=== PATIENT | male | born 1980 | race Caucasian/White ===

== ENCOUNTER 2019-02-23 10:31 | Emergency (ER) | payer SELFPAY ==
[2019-02-23 10:41] VITALS: BP 128/77
--- NOTE | 2019-02-23 11:17 | UC ---
Abdominal Pain Male HPI - HPI Summary HPI Summary: 38-year-old male comes in with a chief complaint of pain and swelling in the left inguinal area. This started at work on February 03, 2018 when he was lifting something heavy over his head. Had instant pain at the time and noticed swelling in the left inguinal area. He thought he might have a hernia. He was able to reduce it on his own. He's continued to have the pain and swelling ever since that time and he still been able to consistently reduce the swelling on his own. No problems with eating or drinking. No complaint of any change in bowel or bladder. Lifting makes the pain worse. Resting and reducing the area makes the pain better. Denies any scrotal pain or swelling. - History of Current Complaint Chief Complaint: UCAbdominalPain Stated Complaint: ABD PAIN Time Seen by Provider: 02/23/19 10:52 Pain Intensity: 7 - Allergies/Home Medications Allergies/Adverse Reactions: Allergies Allergy/AdvReac Type Severity Reaction Status Date / Time Penicillins Allergy unk Verified 02/23/19 10:33 Home Medications: Home Medications NK [No Home Medications Reported] 02/23/19 [History Confirmed 02/23/19] PMH/Surg Hx/FS Hx/Imm Hx Previously Healthy: Yes - Surgical History Surgical History: Yes Surgery Procedure, Year, and Place: fingers - Family History Known Family History: Positive: Non-Contributory - Social History Alcohol Use: Occasionally Substance Use Type: None Smoking Status (MU): Heavy Every Day Tobacco Smoker Review of Systems All Other Systems Reviewed And Are Negative: Yes Constitutional: Positive: Negative Skin: Positive: Negative Eyes: Positive: Negative ENT: Positive: Negative Respiratory: Positive: Negative Cardiovascular: Positive: Negative Gastrointestinal: Positive: Other - see hpi Genitourinary: Positive: Negative Motor: Positive: Negative Neurovascular: Positive: Negative Musculoskeletal: Positive: Negative Neurological: Positive: Negative Psychological: Positive: Negative Is Patient Immunocompromised?: No Physical Exam Triage Information Reviewed: Yes Appearance: Well-Appearing, No Pain Distress, Well-Nourished Vital Signs: Initial Vital Signs Temp 99.3 F 02/23/19 10:37 Pulse 86 02/23/19 10:37 Resp 16 02/23/19 10:37 BP 128/77 02/23/19 10:37 Pulse Ox 100 02/23/19 10:37 Vital Signs Reviewed: Yes Eye Exam: Normal Eyes: Positive: Conjunctiva Clear Neck: Positive: Supple Respiratory: Positive: Lungs clear, Normal breath sounds, No respiratory distress Cardiovascular: Positive: RRR Bowel Sounds: Positive: Present Male Genital Exam: Positive: Other - Patient has some swelling in the inguinal canal which is reducible. Musculoskeletal: Positive: Strength Intact Neurological: Positive: Alert Psychological: Positive: Age Appropriate Behavior Skin Exam: Normal Abd Pain Male Course/Dx - Course Course Of Treatment: Plan is to have the patient follow-up with surgery. We discussed hernia strangulation if this gets worse he needs to go the emergency room right away. - Differential Dx/Clinical Impression Provider Diagnosis: Left inguinal hernia Discharge ED - Sign-Out/Discharge Documenting (check all that apply): Patient Departure All imaging exams completed and their final reports reviewed: No Studies - Discharge Plan Condition: Stable Disposition: HOME Patient Education Materials: Inguinal Hernia (ED) Forms: *Work Release Referrals: Juan Colmenares MD [Medical Doctor] - Additional Instructions: FOLLOW UP WITH DR COLMENARES, SURGERY. GET RECHECKED SOONER IF YOUR CONDITION WORSENS; PAIN, VOMITING, FEVER, YOU FEEL ILL OR ANY QUESTIONS OR CONCERNS. - Billing Disposition and Condition Condition: STABLE Disposition: Home
== END 2019-02-23 11:24 | disposition home or self-care (01) ==
LOC: UCEAST 10:31
DX: K40.90 Unilateral inguinal hernia, without obstruction or gangrene, not specified as recurrent (principal); F17.200 Nicotine dependence, unspecified, uncomplicated; Z88.0 Allergy status to penicillin
CPT/HCPCS: 99211; G0463

== ENCOUNTER 2019-05-13 10:16 | Day surgery (SDC) | payer OTHER ==
[~2019-05-13 10:16] MED LIST: Buffered Lidocaine 1% SYRIN* 1 ML/SYRINGE INTRADERM ONE; Clindamycin 900 MG/D5W BAG(*) 900 MG/50 ML BAG IVPB ONE; Lactated Ringers 1000 ML Bag* 1,000 ML IV SCH
[2019-05-13] MEDS ORDERED: Propofol* 10 MG/ML 20 ML BTL ONE (11:20)
[2019-05-13] MEDS ORDERED: HYDROmorphone INJ1* 1 MG/ML SYRINGE ONE (11:20)
[2019-05-13] MEDS ORDERED: Rocuronium* 10 MG/ML VIAL ONE (11:21)
[2019-05-13] MEDS ORDERED: Bupivacaine 0.25% EPI 200,000* 30 ML SDV ONE (11:28)
[2019-05-13] MEDS ORDERED: Naloxone* 0.4 MG/ML 1 ML VIAL IV PRN (11:30)
[2019-05-13] MEDS ORDERED: Ondansetron INJ* 2 MG/ML VIAL IV PRN (11:30)
[2019-05-13] MEDS ORDERED: HYDROmorphone INJ1* 1 MG/ML SYRINGE IV PRN (11:30)
[2019-05-13] MEDS ORDERED: Dexamethasone IV* 4 MG/ML 1 ML (4 MG) ONE (12:56)
[2019-05-13] MEDS ORDERED: Ketorolac INJ* 30 MG/ML 1 ML VIAL ONE (12:56)
--- NOTE | 2019-05-13 13:23 | BRIEFOPN ---
Brief Operative/Procedure Note - Operation Details Pre-Op Diagnosis: Left inguinal hernia; umbilical hernia Post-Op Diagnosis: Left inguinal hernia; umbilical hernia Procedures: Laparoscopic Left inguinal hernia repair with mesh and open umbilical hernia repair Surgeon(s)/Proceduralists: Dr. Colmenares. Assist: MYRANDA Garcia Anesthesia: GETA. IVF: 2L Estimated Blood Loss: <25cc Findings: As above Specimen(s)/Culture(s) Description: None Complications: None
[2019-05-13 16:32] VITALS: BP 146/89
--- NOTE | 2019-05-14 05:03 | OP ---
CC: Primary Care Doctor; [facility] * DATE OF OPERATION: 05/13/19 - [facility] DATE OF : 80 SURGEON: Dr. Colmenares. SKEIN WASHER: MYRANDA Blanchard. ANESTHESIA: General anesthesia. PRE-OP DIAGNOSES: Left inguinal hernia and umbilical hernia. POST-OP DIAGNOSES: Left inguinal hernia and umbilical hernia. OPERATIVE PROCEDURES: Laparoscopic left inguinal hernia repair with mesh and an open umbilical hernia repair. BLOOD LOSS: Minimal. FLUIDS: Crystalloid fluid given. Please see anesthesia report for those details. SPECIMEN: None. DRAINS: None. COMPLICATIONS: None. DESCRIPTION OF PROCEDURE: The patient was identified in the preoperative area. He was taken care and marked the left groin area. Consent was signed. He was taken to the operating room and placed on the operating table in the supine position. Preoperative antibiotics were given. Sequential devices were placed on bilateral lower extremities. General anesthesia was induced. The patient's abdomen was clipped off hair and prepped and draped in a standard surgical fashion and a time- out was performed. An infraumbilical incision was made. This was deepened down to the anterior fascia inferiorly. The umbilical skin was then sharply dissected off of the hernia sac. The hernia sac was entered and we were able to lyse the peritoneum and enter into the abdomen. A 5-mm trocar was first placed and allowed the abdomen to insufflate to a pressure of 15 mmHg without difficulty. The 5-mm trocar was removed and a 12 mm blunt trocar was then placed. Laparoscope was inserted through this. There was no evidence of injury from the trocar insertion. An additional trocar was then placed and confirmed the position 5 mm in the left lower quadrant and 5 mm in the right lower quadrant. Review of the abdomen showed normal appearing bowel. There was no evidence of a right inguinal hernia. There was obvious left inguinal hernia. We started by taking the peritoneum off at the left-sided medial umbilical ligament and incised the peritoneum and transversalis fascia laterally to create a pocket. We entered into this preperitoneal plane in this manner and a blunt dissection was carried out to expose the midline structures as well as the Maikel's ligament. The epigastric vessels were maintained anteriorly. We cleared away some adipose tissue around these vessels and continued the dissection laterally into the space of Bogros. The hernia sac was then bluntly dissected away from the somatic structures. Lipoma of the cord was also reduced and once we had the full dissection posteriorly performed, we then placed a laparoscopic ProGrip mesh into the abdomen. It was placed over the midline in the pocket and allowed to open up and extended more inferiorly and posteriorly in the Maikel's ligament. It stayed without any wrinkling, and we then next closed the peritoneum with a running 3-0 V-Loc suture. The abdomen was allowed to collapse. Trocars were removed under direct vision. We turned our attention to the umbilical defect and this was reapproximated with a figure- of-eight 0 Prolene suture. The wound was then irrigated. Infraumbilical skin tacked down with a 2-0 Vicryl suture and all 3 skin incisions were reapproximated with 4-0 Monocryl subcuticular sutures. Steri-Strips and sterile dressing were applied. The patient tolerated the procedure well and was awoken up and transferred to the PACU in stable condition. [id number]/CPS #: [id number] ARCHANA
== END 2019-05-13 17:15 | disposition home or self-care (01) ==
LOC: OR 10:16
PROVIDERS: ATTEND Surgery
DX: K40.90 Unilateral inguinal hernia, without obstruction or gangrene, not specified as recurrent (principal); K42.9 Umbilical hernia without obstruction or gangrene; Z88.0 Allergy status to penicillin; Z87.891 Personal history of nicotine dependence
CPT/HCPCS: C1781; J1100; J1170; J1885; J2704